=== PATIENT | female | born 1950 | race Two or more races ===

== ENCOUNTER 2017-08-10 15:04 | Emergency (ER) | payer OTHER ==
[~2017-08-10] VITALS: Ht 152.4 cm; Wt 90.7 kg
[~2017-08-10 15:04] MED LIST: GABAPENTIN300 MG PO; NORCO 10-325 T1 EACH
--- NOTE | 2017-08-10 17:56 | Diagnostic Imaging Report ---
PROCEDURE:X-RAY RIGHT FOOT, COMPLETE COMPARISON:None. INDICATIONS:RIGHT ANKLE AND FOOT PAIN FINDINGS: Mildly decreased mineralization. No acute, displaced fracture or dislocation. 9 mm well-corticated bony fragment lateral to the cuboid bone, likely represents an accessory os. No aggressive lytic or blastic lesion. Soft tissue swelling in the dorsal and plantar aspect of the foot. CONCLUSION: No acute, displaced fracture or dislocation. Soft tissue swelling in the dorsal and plantar aspect of the foot. Emilio Torres M.D. Dictated by: Emilio Torres M.D. on 08/10/2017 at 18:04 Electronically approved by: Emilio Torres M.D. on 08/10/2017 at 18:04
--- NOTE | 2017-08-10 17:57 | Diagnostic Imaging Report ---
PROCEDURE:X-RAY RIGHT ANKLE, COMPLETE INDICATION:Right ankle and foot pain COMPARISON:None. FINDINGS: Mildly decreased mineralization. No acute, displaced fracture or dislocation. Ankle mortise is preserved. No osteochondral lesion. Marked soft tissue swelling surrounding the ankle. CONCLUSION: Marked soft tissue swelling surrounding the ankle. No definite acute, displaced fracture or dislocation. Emilio Torres M.D. Dictated by: Emilio Torres M.D. on 08/10/2017 at 18:05 Electronically approved by: Emilio Torres M.D. on 08/10/2017 at 18:05
[2017-08-10 18:38] VITALS: BP 135/62
== END 2017-08-10 18:43 | disposition home or self-care (01) ==
LOC: ER 15:04
DX: G89.11 Acute pain due to trauma (principal); M25.571 Pain in right ankle and joints of right foot
CPT/HCPCS: 99283